=== PATIENT | male | born 1950 | race Caucasian/White ===

== ENCOUNTER 2017-04-05 11:23 | Emergency (ER) | payer BC ==
[2017-04-05] MEDS ORDERED: Diphtheria,Pertussis(Acell),Tetanus Vaccine 0.5 ML SDV inactive IM ONE ×2 (11:57→12:09)
[2017-04-05] MEDS ORDERED: Amoxicillin/Clavulanate K 875-125 MG Tab ONE (12:05)
--- NOTE | 2017-04-05 12:15 | EDM.PDOC ---
ED HPI GENERAL MEDICAL PROBLEM - General Chief Complaint: General Stated Complaint: fish hook Time Seen by Provider: 04/05/17 11:30 Source of Information: Reports: Patient History Limitations: Reports: No Limitations - History of Present Illness INITIAL COMMENTS - FREE TEXT/NARRATIVE: Pt [place] HE caught a [place] pike, which was feisty and was wiggling around a lot, when he tried get the fish hook off, the hook got stuck in the right hand. Pt did try to get it out and was hard and hence here. His last tetanus was about 120 years ago. No tingling or numbness. Able to move his thumb. No other injuries. Onset: Today Onset Date: 04/05/17 Onset Time: 10:30 - Related Data Allergies Allergy/AdvReac Type Severity Reaction Status Date / Time Sulfa (Sulfonamide Allergy Hives Verified 04/05/17 11:35 Antibiotics) Home Meds: Home Meds NK [No Known Home Meds] 04/05/17 [History] Past Medical History Gastrointestinal History: Reports: GERD Other Gastrointestinal History: take protonix Other Musculoskeletal History: Right shoulder impingement syndrome - Infectious Disease History Infectious Disease History: Reports: Chicken Pox, Measles - Past Surgical History GI Surgical History: Reports: Jacki Fundoplication Social & Family History - Family History Family Medical History: Noncontributory - Tobacco Use Smoking Status *Q: Former Smoker Used Tobacco, but Quit: Yes Month Tobacco Last Used: 1979 - Caffeine Use Caffeine Use: Reports: Coffee, Soda - Alcohol Use Days Per Week of Alcohol Use: 1 Number of Drinks Per Day: 1 Total Drinks Per Week: 1 - Recreational Drug Use Recreational Drug Use: No ED ROS GENERAL - Review of Systems Review Of Systems: See Below Constitutional: Denies: Fever, Chills HEENT: Denies: Throat Pain, Throat Swelling Respiratory: Denies: Cough, Sputum Cardiovascular: Denies: Chest Pain, Syncope GI/Abdominal: Reports: Abdominal Pain, Nausea, Vomiting : Denies: Urgency, Urinary Retention Musculoskeletal: Denies: Joint Pain, Joint Swelling Skin: Denies: Pruritis, Rash Neurological: Denies: Confusion, Difficulty Walking, Weakness, Gait Disturbance Psychiatric: Denies: Agitation, Confusion ED EXAM, GENERAL - Physical Exam Exam: See Below Exam Limited By: No Limitations General Appearance: Alert, WD/WN, No Apparent Distress Ears: Normal External Exam, Normal Canal, Hearing Grossly Normal, Normal TMs Ear Exam: Bilateral Ear: Auricle Normal, Canal Normal, TM normal Nose: Normal Inspection, Normal Mucosa, No Blood Throat/Mouth: Normal Inspection, Normal Lips, Normal Teeth, Normal Gums, Normal Oropharynx, Normal Voice, No Airway Compromise Head: Atraumatic, Normocephalic Neck: Normal Inspection, Supple, Non-Tender, Full Range of Motion Respiratory/Chest: No Respiratory Distress, Lungs Clear, Normal Breath Sounds, No Accessory Muscle Use, Chest Non-Tender Cardiovascular: Normal Peripheral Pulses, Regular Rate, Rhythm, No Edema, No Gallop, No JVD, No Murmur, No Rub Extremities: Other (Right Hand: There is fish Hook embedded in the first webspace of his hand . the hook is deep into the muscle s and almost puckering the skin. No tinlging or numbnes. Normal neurovascular exam of the thumb and indexfinger) Course - Vital Signs Text/Narrative:: Pt reassured, fish hoot removed under aseptic precautions under local anesthesia with 1% lido. Pressure dressing done. He did receive Tdap today. I have empirically covered patient with Augmentin 875mg twice daily for 10 days considering the depth of the wound. Wound care discussed. Followup in clinic if pain or signs of infection develop. Last Recorded V/S: Last Vital Signs Temp 98.7 F 04/05/17 11:39 Pulse 78 04/05/17 11:39 Resp 16 04/05/17 11:39 BP 149/91 H 04/05/17 11:39 Pulse Ox 97 04/05/17 11:39 - Orders/Labs/Meds Orders: Active Orders 24 hr Category Date Time Status Vaccines to be Administered [RC] PER UNIT ROUTINE Care 04/05/17 12:10 Ordered Diphth,Pertuss(Acell),Tet Vac [Boostrix] Med 04/05/17 12:09 Once 0.5 ml IM .ONCE ONE Meds: Medications Discontinued Medications Generic Name Dose Route Start Last Admin Trade Name Freq PRN Reason Stop Dose Admin Amoxicillin/Clavulanate Potassium Confirm 04/05/17 12:05 Augmentin 875 Mg/125 Mg Administered 04/05/17 12:06 Dose 4 tab .ROUTE .STK-MED ONE Diphtheria/Tetanus/Acell Pertussis 0.5 ml 04/05/17 11:57 Boostrix IM 04/05/17 11:58 .ONCE ONE Departure - Departure Time of Disposition: 12:10 Disposition: Home, Self-Care 01 Condition: Good Clinical Impression: Fish hook injury of hand - Discharge Information Referrals: PCP,None [Primary Care Provider] - - Problem List & Annotations (1) Fish hook injury of hand SNOMED Code(s): 645075925 Code(s): S69.90XA - UNSP INJURY OF UNSP WRIST, HAND AND FINGER(S), INIT ENCNTR Status: Acute Current Visit: Yes - Problem List Review Problem List Initiated/Reviewed/Updated: Yes - My Orders Last 24 Hours: My Active Orders 04/05/17 12:09 Diphth,Pertuss(Acell),Tet Vac [Boostrix] 0.5 ml IM .ONCE ONE 04/05/17 12:10 Vaccines to be Administered [RC] PER UNIT ROUTINE - Assessment/Plan Last 24 Hours: My Active Orders 04/05/17 12:09 Diphth,Pertuss(Acell),Tet Vac [Boostrix] 0.5 ml IM .ONCE ONE 04/05/17 12:10 Vaccines to be Administered [RC] PER UNIT ROUTINE Assessment:: Fish hook right hand Plan: Pt reassured, fish hoot removed under aseptic precautions under local anesthesia with 1% lido. Pressure dressing done. He did receive Tdap today. I have empirically covered patient with Augmentin 875mg twice daily for 10 days considering the depth of the wound. Wound care discussed. Followup in clinic if pain or signs of infection develop.
== END 2017-04-05 12:15 | disposition home or self-care (01) ==
LOC: LB.ED 11:23
DX: S60.551A Superficial foreign body of right hand, initial encounter (principal); Z23 Encounter for immunization; W26.8XXA Contact with other sharp object(s), not elsewhere classified, initial encounter; W45.8XXA Other foreign body or object entering through skin, initial encounter; Y92.828 Other wilderness area as the place of occurrence of the external cause
CPT/HCPCS: 90471; 99283-25

== ENCOUNTER 2021-09-17 11:13 | Emergency (ER) | payer MEDICARE | END 2021-09-17 16:05 | disposition home or self-care (01) | LOC: LB.ED 11:13 | DX: S29.011A Strain of muscle and tendon of front wall of thorax, initial encounter (principal); Z88.2 Allergy status to sulfonamides | CPT/HCPCS: 36415; 71045; 80053; 84484; 85025; 93005; 99285-25 ==